=== PATIENT | female | born 1960 | race Caucasian/White ===

== ENCOUNTER 2017-03-16 17:45 | Emergency (ER) | payer OTHER ==
[2017-03-16 17:55] VITALS: RESP 18
--- NOTE | 2017-03-16 18:49 | EDPHY ---
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 She now complains of right elbow pain, right forearm pain, right wrist pain. 7/10 pain. She did not take anything prior to arrival. She reports that her hurts when she moves her right elbow right arm and right wrist. Denies any other areas of injury. Past Medical History: Denies medical history except for pre diabetes Past Surgical History: No recent surgery Social History: Denies daily use drugs alcohol tobacco. Family History: Noncontributory. ROS REVIEW OF SYSTEMS: A comprehensive 10 point review of systems is otherwise negative aside from elements mentioned in the history of present illness. Exam Constitutional appears well nontoxic triage nursing summary reviewed, vital signs reviewed, awake/alert. Eyes normal conjunctivae and sclera, EOMI, PERRLA. HENT normal inspection, atraumatic, moist mucus membranes, no epistaxis, neck supple/ no meningismus, no raccoon eyes. Respiratory clear to auscultation bilaterally, normal breath sounds, no respiratory distress, no wheezing. Cardiovascular rate normal, regular rhythm, no murmur, no edema, distal pulses normal. Gastrointestinal soft, non-tender, no rebound, no guarding, normal bowel sounds, no distension, no pulsatile mass. Genitourinary no CVA tenderness. Musculoskeletal no midline vertebral tenderness, full range of motion, no calf swelling, no tenderness of extremities, no meningismus, good pulses, neurovascularly intact. Right upper extremity: Full range of motion of the elbow or wrist and forearm but has pain with range of motion of the elbow, tender palpation down the form no crepitus. There is no obvious deformity. No significant swelling. Radial pulses intact. Neurovascular intact cubital have appropriate guest service manager strength and wiggle her fingers. Skin pink, warm, & dry, no rash, skin atraumatic. Neurologic awake, alert and oriented x 3, AAOx3, moves all 4 extremities equally, motor intact, sensory intact, CN II-XII intact, normal cerebellar, normal vision, normal speech. Psychiatric normal mood/affect. Heme/Lymph/Immune no lymphadenopathy. Differential Diagnosis: Includes but is not limited to in a particular order right form contusion, right elbow fracture, right forearm fracture, right wrist fracture Medical Decision Making: Plan for this patient [place] for pain control. X-ray of the right wrist, right forearm, right elbow. Re-evaluation: This patient's x-rays reviewed of the right elbow, right forearm and right wrist. This reveals a right radial head Fracture. This patient is neurovascularly intact. Patient be splinted in a posterior long- arm splint for immobilization for pain control and stabilization of the joint. Additionally the patient need to follow up with Orthopedics. Orthopedic referral be given on the paperwork at discharge. [place] for pain control. Ibuprofen for mild pain. This has been explained to the patient using a professor of practice. She understands. She understands she has an elbow fracture. Understands follow-up with Orthopedics. Compartments are soft. Return precautions given. Source: Patient - Personal History LMP (Females 10-55): Post Menopausal Current Tetanus Diphtheria and Acellular Pertussis (TDAP): Yes - Medical/Surgical History Hx Diabetes: No Other PMH: prediabetic. thyroid. BP - Social History Smoking Status: Never smoked Constitutional: Initial Vital Signs Temperature (C) 37.2 C 03/16/17 17:46 Heart Rate 88 03/16/17 17:46 Respiratory Rate 18 03/16/17 17:46 Blood Pressure 152/97 H 03/16/17 17:46 O2 Sat (%) 97 03/16/17 17:46 O2 Delivery Mode Room Air Allergies/Adverse Reactions: Latex, Natural Rubber Allergy (Unknown, Verified 03/16/17 17:46) Home Medications: Medication Instructions Recorded Hydrocodone/APAP 5/325 [[place] 1 - 2 tab PO Q4H PRN #10 tab 03/16/17 5/325] Ibuprofen [Motrin (*)] 800 mg PO Q6-8PRN #10 tab 03/16/17 Levothyroxine [Synthroid 100 mcg 100 mcg PO DAILY06 03/16/17 (*)] Lisinopril [Zestril 40 mg (*)] 40 mg PO 03/16/17 metFORMIN HCL [Glucophage 500 mg 500 mg PO 03/16/17 (*)] Medical Decision Making - Data Points Medications Given: Discontinued Medications Hydrocodone Bitart/Acetaminophen ([place] 5/325) 1 tab PO EDNOW ONE Stop: 03/16/17 18:57 Last Admin: 03/16/17 19:22 Dose: 1 tab Departure - Departure Disposition: Home, Routine, Self-Care Clinical Impression: Elbow fracture, right Qualifiers: Encounter type: initial encounter Fracture type: closed Qualified Code(s): S42.401A - Unspecified fracture of lower end of right humerus, initial encounter for closed fracture Condition: Good Instructions: Hydrocodone/Acetaminophen (By mouth), Elbow Fracture (ED) Additional Instructions: 1. Ice. 2. Stay in your splint for comfort. 3. Follow up with Orthopedics. 4. Ibuprofen for mild pain control. 5. [place] for severe pain. Referrals: Kandis Hidalgo PA [Primary Care Provider] - As per Instructions James Phillips MD [Medical Doctor] - As per Instructions Prescriptions: Hydrocodone/APAP 5/325 [[place] 5/325] 1 - 2 tab PO Q4H PRN #10 tab PRN Reason: Pain, Moderate Ibuprofen [Motrin (*)] 800 mg PO Q6-8PRN #10 tab
[2017-03-16] MEDS ORDERED: HYDROCODONE/APAP 5/325 TAB PO ONE (18:56)
[2017-03-16] MEDS ORDERED: HYDROCOD/APAP 5/325 PREPACK#6 BTL TAKEHOME ONE (18:56)
[2017-03-16 19:58] VITALS: BP 163/89; PULSE 87; TEMP 98.1; O2SAT 94
== END 2017-03-16 19:58 | disposition home or self-care (01) ==
DX: S42.401A Unspecified fracture of lower end of right humerus, initial encounter for closed fracture (principal); W01.0XXA Fall on same level from slipping, tripping and stumbling without subsequent striking against object, initial encounter; Y99.8 Other external cause status; Y93.01 Activity, walking, marching and hiking
CPT/HCPCS: A4565